=== PATIENT | female | born 1980 | race Two or more races ===

== ENCOUNTER 2021-12-12 12:58 | Emergency (ER) | payer SELFPAY ==
[~2021-12-12] VITALS: Ht 160 cm; Wt 63.6 kg
[2021-12-12] MEDS ORDERED: IV NORMAL SALINE 1000ML BAG 1,000 ML IV ONE (13:45)
[2021-12-12 13:54] LABS: BILIRUBIN,URINE SMALL (NEG); CLARITY,URINE CLEAR; COLOR,URINE AMBER; NITRITE,URINE NEGATIVE (NEG); PROTEIN,URINE NEGATIVE (NEG-TRACE)
--- NOTE | 2021-12-12 13:58 | PHYS DOC ---
Past Medical History Past Surgical History: Other Additional Past Surgical Histo: gastric sleeve 4 years ago General Adult EDM: Chief Complaint: BACK PAIN - NO INJURY HPI: HPI: Patient is a 41 year old female patient with history of gastric sleeve, who presents to the ED today complaining of her entire back hurting, urinary frequency and slight dysuria, symptoms intermittently for 3 months. Patient believes she could be having renal failure. She states her urine has been dark for 3 months. She states she is not able to drink much water, she gets nauseous. She states she also has a gastric sleeve and not able to tolerate much water. Review of Systems: Review of Systems: constitutional: Denies fever or chills. [] Eyes: Denies change in visual acuity. [] HENT: Denies nasal congestion or sore throat. [] Respiratory: Denies cough or shortness of breath. [] Cardiovascular: Denies chest pain or edema. [] GI: Denies abdominal pain, nausea, vomiting, bloody stools or diarrhea. [] : Reports dark urine, dysuria, frequency Musculoskeletal: Reports back pain Integument: Denies rash. [] Neurologic: Denies headache, focal weakness or sensory changes. [] [] Psychiatric: Denies depression or anxiety. [] Heart Score: C/O Chest Pain: N/A Risk Factors: Risk Factors: DM, Current or recent (<one month) smoker, HTN, HLP, family history of CAD, obesity. Risk Scores: Score 0 - 3: 2.5% MACE over next 6 weeks - Discharge Home Score 4 - 6: 20.3% MACE over next 6 weeks - Admit for Clinical Observation Score 7 - 10: 72.7% MACE over next 6 weeks - Early Invasive Strategies Current Medications: Current Medications Medications (Trade) Dose Ordered Sig/Roge Start Time Stop Time Status Last Admin Dose Admin Sodium Chloride 1,000 ml @ 1,000 mls/hr 1X ONCE 12/12/21 13:45 12/12/21 14:44 UNV Allergies: Allergies: Allergies Coded Allergies Type Severity Reaction Last Updated Verified No Known Drug Allergies 12/12/21 No Physical Exam: PE: Constitutional: Well developed, well nourished, no acute distress, non-toxic appearance. [] HENT: Normocephalic, atraumatic, bilateral external ears normal, oropharynx moist, no oral exudates, nose normal. [] Eyes: PERRLA, EOMI, conjunctiva normal, no discharge. [] Neck: Normal range of motion, no tenderness, supple, no stridor. [] Cardiovascular:Heart rate regular rhythm, no murmur [] Lungs & Thorax: Bilateral breath sounds clear to auscultation [] Abdomen: Bowel sounds normal, soft, no tenderness, no masses, no pulsatile masses. [] Skin: Warm, dry, no erythema, no rash. [] Back: No tenderness, no CVA tenderness. [] Extremities: No tenderness, no cyanosis, no clubbing, ROM intact, no edema. [] Neurologic: Alert and oriented X 3, normal motor function, normal sensory function, no focal deficits noted. [] Psychologic: Affect normal, judgement normal, mood normal. [] Current Patient Data: Labs: Laboratory Tests Test 12/12/21 13:26 POC Urine HCG, Qualitative Hcg negative (Negative) Vital Signs: Vital Signs Date Time Temp Pulse Resp B/P (MAP) Pulse Ox O2 Delivery O2 Flow Rate FiO2 12/12/21 13:16 98.0 79 18 107/73 (84) 98 Room Air 98.0 EKG: EKG: [] Radiology/Procedures: Radiology/Procedures: []PROCEDURE: CT ABDOMEN PELVIS WO CONTRAST CT scan abdomen and pelvis without contrast 12/12/2021 CLINICAL HISTORY: Flank pain. TECHNIQUE: Unenhanced, contiguous, 2 mm axial sections were obtained through the abdomen and pelvis. One or more of the following individualized dose reduction techniques were utilized for this study: 1. Automated exposure control. 2. Adjustment of the mA and/or kV according to patient size. 3. Use of iterative reconstruction technique. FINDINGS: Images through the lung bases demonstrate minimal dependent subsegmental atelectasis bilaterally. The liver, spleen, pancreas, and adrenal glands are within normal limits. Patchy areas of increased attenuation is seen within the medullary portions of both kidneys suggestive of medullary nephrocalcinosis. Two 1 to 2 mm nonobstructing calculi are seen involving the midpole of the right kidney. No ureteral calculus is seen. There is no evidence of obstruction of either collecting system. The abdominal aorta tapers normally. The gallbladder is contracted. Surgical clips are seen along the greater curvature of the stomach. No free fluid or free air is seen within the abdomen. There is no evidence of bowel obstruction. The appendix is well-visualized and is within normal limits. Images through the pelvis demonstrate the urinary bladder to be slightly contracted. Calcifications are seen within the pelvis consistent with phleboliths. No distal ureteral calculus is seen. No adnexal mass is noted. No free fluid is seen. Minimal S-shaped curvature of the thoracolumbar spine is seen. IMPRESSION: No acute abnormality is seen. Electronically signed by: Van Espitia MD (12/12/2021 2:19 PM) [id number] DICTATED and SIGNED BY: VAN ESPITIA MD DATE: 12/12/21 [id number] 0 Course & Med Decision Making: Course & Med Decision Making Pertinent Labs and Imaging studies reviewed. (See chart for details) This is a 41-year-old female patient presenting to the ED today complaining of generalized back pain, dysuria, frequency, dark urine, concerned she could have kidney failure, symptoms for 3 months. UA negative for infection, CBC CMP CK are negative. Given a liter of fluid, discharged home. Follow-up with PCP in 1 week Naman Disclaimer: Naman Disclaimer: This electronic medical record was generated, in whole or in part, using a voice recognition dictation system. Departure Departure Impression: Primary Impression: Back pain Qualified Codes: M54.6 - Pain in thoracic spine Disposition: HOME / SELF CARE / HOMELESS Condition: STABLE Referrals: NO PCP (PCP) follow up with your doctor in one week Patient Instructions: Back Pain, Adult Additional Instructions: You were evaluated in the emergency room, your lab work and CT of the abdomen and pelvis are negative for any acute findings. Please follow-up with your own primary care doctor in 1 week. ERICH BRODY SHELL MACHINE OPERATOR Dec 12, 2021 13:58
[2021-12-12 14:15] LABS: BACTERIA,URINE FEW /HPF (0-FEW)
--- NOTE | 2021-12-12 14:21 | RAD ---
CT scan abdomen and pelvis without contrast 12/12/2021 CLINICAL HISTORY: Flank pain. TECHNIQUE: Unenhanced, contiguous, 2 mm axial sections were obtained through the abdomen and pelvis. One or more of the following individualized dose reduction techniques were utilized for this study: 1. Automated exposure control. 2. Adjustment of the mA and/or kV according to patient size. 3. Use of iterative reconstruction technique. FINDINGS: Images through the lung bases demonstrate minimal dependent subsegmental atelectasis bilate rally. The liver, spleen, pancreas, and adrenal glands are within normal limits. Patchy areas of increased attenuation is seen within the medullary portions of both kidneys suggestiv e of medullary nephrocalcinosis. Two 1 to 2 mm nonobstructing calculi are seen involving the midpole of the right kidney. No ureteral calculus is seen. There is no evidence of obstruction of either jyothi ecting system. The abdominal aorta tapers normally. The gallbladder is contracted. Surgical clips are seen along the greater curvature of the stomach. No free fluid or free air is seen within the abdomen. There is no evidence of bowel obstruction. The appendix is well-visualized and is within normal limits. Images through the pelvis demonstrate the urinary bladder to be slightly contracted. Calcifications a re seen within the pelvis consistent with phleboliths. No distal ureteral calculus is seen. No adnexa l mass is noted. No free fluid is seen. Minimal S-shaped curvature of the thoracolumbar spine is seen. IMPRESSION: No acute abnormality is seen. Electronically signed by: Van Ramos MD (12/12/2021 2:19 PM) [id number]
[2021-12-12 14:39] LABS: BASO # 0.1 x10^3/uL (0.0-0.2); BASO % 1 % (0-3); EOS # 0.1 x10^3/uL (0.0-0.7); EOS % 2 % (0-3); HEMATOCRIT 39.6 % (36.0-47.0); HEMOGLOBIN 12.9 g/dL (12.0-15.5); LYMPH # 2.2 x10^3/uL (1.0-4.8); LYMPH % 23 % (24-48); MEAN CORPUSCULAR HEMOGLOBIN 26 pg (25-35); MEAN CORPUSCULAR HGB CONC 33 g/dL (31-37); MEAN CORPUSCULAR VOLUME 80 fL (79-100); MONO # 0.7 x10^3/uL (0.0-1.1); MONO % 7 % (0-9); NEUT # 6.6 x10^3/uL (1.8-7.7); NEUT % 67 % (31-73); PLATELET COUNT 276 x10^3/uL (140-400); RED BLOOD COUNT 4.93 x10^6/uL (3.50-5.40); RED CELL DISTRIBUTION WIDTH 15.7 % (11.5-14.5); WHITE BLOOD COUNT 9.8 x10^3/uL (4.0-11.0)
[2021-12-12 14:56] LABS: CALCIUM 8.9 mg/dL (8.5-10.1); CREATININE 0.9 mg/dL (0.6-1.0); GFR 68.7; POTASSIUM 3.7 mmol/L (3.5-5.1)
[2021-12-12 15:01] LABS: ALBUMIN 3.7 g/dL (3.4-5.0); ALBUMIN/GLOBULIN RATIO 0.9 (1.0-1.7); TOTAL BILIRUBIN 0.5 mg/dL (0.2-1.0)
[2021-12-12 15:28] VITALS: BP 105/62
== END 2021-12-12 16:04 | disposition home or self-care (01) ==
LOC: ER 12:58
DX: M54.6 Pain in thoracic spine (principal); R30.0 Dysuria; R35.0 Frequency of micturition
CPT/HCPCS: 36415; 74176; 80053; 81001; 81025; 82550; 83690; 85025; 96360; 99284; J7030